=== PATIENT | male | born 1955 | race Caucasian/White ===

== ENCOUNTER 2022-05-31 06:00 | Day surgery (SDC) | payer MEDICARE ==
[~2022-05-31 06:00] MED LIST: Lactated Ringers 1,000 ML IV SCH
[2022-05-31] MEDS ORDERED: Versed 2 MG/2 ML Injection ONE (06:58)
[2022-05-31] MEDS ORDERED: DIPRIVAN 200 MG/20 ML IV ONE ×2 (06:58→07:18)
[2022-05-31 07:46] VITALS: BP 146/89; PULSE 53; O2SAT 100
--- NOTE | 2022-05-31 14:36 | OP ---
SURGERY DATE/TIME: 05/31/2022 0709 PREOPERATIVE DIAGNOSIS: Screening exam. POSTOPERATIVE DIAGNOSES: 1) Sigmoid polyp. 2) Sigmoid diverticulosis. PROCEDURE: Colonoscopy with hot snare polypectomy. SURGEON: Dr. Jhon Chaidez. ANESTHESIA: MAC. Medications given by anesthesia department. HISTORY: The patient is a 67-year-old white male patient who reports he presents for screening colonoscopy. He reports he had one previously about 15 years ago. The patient was felt the need to have endoscopic evaluation. He was appraised of the risks of the procedure including the risk of perforation, phlebitis, untoward reaction to medication, bleeding and missed lesions. The patient verbalized his understanding and desired to have the procedure performed. DESCRIPTION OF PROCEDURE: The patient was given the medications by the anesthesia department. He had continuous pulse oximetry, ECG monitoring, intermittent blood pressure monitoring during the examination. He was placed in the left lateral decubitus position. A digital rectal examination was performed and revealed normal anal sphincter tone, no masses and normal prostate. The flexible Olympus pediatric colonoscope was used to intubate the rectum. A view of the colon was developed sequentially to the cecum. Upon insertion and withdrawal was noted sigmoid diverticulosis and a polyp measuring approximately 1.2 cm in diameter which was removed using hot polypectomy snare and retrieved for pathologic evaluation. The scope was removed from the patient who tolerated the procedure well and sent back to outpatient recovery in good condition.
== END 2022-05-31 07:50 | disposition home or self-care (01) ==
LOC: SDC 06:00
PROVIDERS: ATTEND Family Medicine
DX: Z12.11 Encounter for screening for malignant neoplasm of colon (principal); D12.5 Benign neoplasm of sigmoid colon; K57.30 Diverticulosis of large intestine without perforation or abscess without bleeding
CPT/HCPCS: J2250; J2704

== ENCOUNTER 2024-03-02 15:05 | Emergency (ER) | payer MEDICARE ==
--- NOTE | 2024-03-02 15:16 | ERPHSYRPT ---
- History of Present Illness Time Seen by Provider: 03/02/24 15:15 Source: patient, family Exam Limitations: no limitations Physician History: This is a 69-year-old white male patient who had a steroid injection into his left foot a couple of weeks ago. In the last day or so he has noticed mild redness and tenderness that is been present on the dorsal aspect of his left foot and to the lateral milligan area. The patient called his physician office of the physician that injected the steroid and he was told to come to the emergency department to rule out a DVT. Patient has a history of hypertension, osteoarthritis and history of hepatitis in the distant past. No trauma to the left foot other than the injection 2 weeks ago. No history of DVT or other bleeding or clotting disorders. Timing/Duration: today Severity: mild Associated Symptoms: denies symptoms Allergies/Adverse Reactions: [id number] Reductase Inhibitor Adverse Reaction (Severe, Verified 03/02/24 15:18) muscle weakness Home Medications: Lisinopril/Hydrochlorothiazide [Lisinopril-Hctz 10-12.5 mg Tab] 1 tab PO UD 05/10/22 [History] Travel Risk - International Travel Have you traveled outside of the country in past 3 weeks: No - Emerging Infectious Disease Are you exhibiting symptoms associated with any current EIDs: No - Review of Systems Constitutional: No Symptoms Eyes: No Symptoms Ears, Nose, & Throat: No Symptoms Respiratory: No Symptoms Cardiac: No Symptoms Abdominal/Gastrointestinal: No Symptoms Genitourinary Symptoms: No Symptoms Musculoskeletal: No Symptoms Skin: Other (Mild localized redness dorsal aspect of his left foot associated tenderness at this site as well as tenderness to the outer/lateral aspect of the left milligan.) Neurological: No Symptoms Psychological: No Symptoms Endocrine: No Symptoms Hematologic/Lymphatic: No Symptoms Immunological/Allergic: No Symptoms All Other Systems: Reviewed and Negative - Past Medical History Pertinent Past Medical History: Yes Neurological History: No Pertinent History ENT History: No Pertinent History Cardiac History: Hypertension Respiratory History: No Pertinent History Endocrine Medical History: Other Musculoskeletal History: Osteoarthritis GI Medical History: No Pertinent History History: No Pertinent History Psycho-Social History: No Pertinent History Male Reproductive Disorders: No Pertinent History Other Medical History: HEPITITIS 20+ YEARS AGO. - Past Surgical History Past Surgical History: No Neuro Surgical History: No Pertinent History Cardiac: No Pertinent History Respiratory: No Pertinent History Gastrointestinal: No Pertinent History Genitourinary: No Pertinent History Musculoskeletal: No Pertinent History Male Surgical History: No Pertinent History - Social History Smoking Status: Former smoker Exposure to second hand smoke: No Drug Use: none - Nursing Vital Signs Nursing Vital Signs: Initial Vital Signs Temperature 97.1 F 03/02/24 15:12 Pulse Rate 68 03/02/24 15:12 Respiratory Rate 18 03/02/24 15:12 Blood Pressure 158/106 03/02/24 15:12 O2 Sat by Pulse Oximetry 98 03/02/24 15:12 Pain Scale Pain Intensity 3 - Physical Exam General Appearance: no apparent distress, alert, anxiety, thin Eye Exam: PERRL/EOMI, eyes nml inspection Ears, Nose, Throat Exam: normal ENT inspection, moist mucous membranes Neck Exam: normal inspection, non-tender, supple, full range of motion Respiratory Exam: airway intact, No chest tenderness, No respiratory distress Gastrointestinal/Abdomen Exam: No tenderness Rectal Exam: not done Back Exam: normal inspection, normal range of motion, No CVA tenderness, No vertebral tenderness Extremity Exam: normal range of motion, pelvis stable, swelling (Dorsal aspect left foot), tenderness (Dorsal aspect left foot with tenderness in the skin overlying the left distal milligan and left lateral milligan) Neurologic Exam: alert, oriented x 3, cooperative, emr specialist II-XII nml as tested, nml cerebellar function, nml station & gait, sensation nml Skin Exam: other (See above) Lymphatic Exam: No adenopathy SpO2 Interpretation: normal O2 Delivery: Room Air - Course Nursing assessment & vital signs reviewed: Yes Ordered Tests: Active Orders 24 hr Category Date Time Status VENOUS UNILAT/LIMITED EXTREMIT [US] Stat Exams 03/02/24 15:32 Completed - Progress Progress: unchanged Progress Note: 03/02/24 16:01 My medical decision making and the assignment of low complexity to this medical issue today is based on review of the patient's past medical history, review of the patient's medication list, reviewed patient drug allergy list, history present illness and physical findings on examination. The workup in this patient includes venous Doppler of the left lower extremity. We will also provide the patient a outpatient prescription for Keflex. 03/02/24 16:17 left venous doppler negative for dvt. study read by radiologist Counseled pt/family regarding: diagnosis, need for follow-up, rad results Medical Desision Making - Diagnostic Testing Diagnostic test were ordered, analyzed, and reviewed by me: Yes Radiological Interpretation: Reviewed by me, Teleradiologist Report - Risk of complications The pt has a mod risk of morbidity or mortality based on: Need for prescription drug management - Departure Departure Disposition: Home (cellulitist) Clinical Impression: Cellulitis Condition: Stable Critical Care Time: No Referrals: MINAL SOTO MD [Primary Care Provider] - Follow up/PCP as directed Additional Instructions: Keep site clean daily. Take medications as prescribed. call your primary care for further management and instructions. Prescriptions: Cephalexin Mh 500 mg [Keflex 500 mg] 500 mg PO TID #15 cap
[2024-03-02 15:18] VITALS: PULSE 68; RESP 18; TEMP 97.1
--- NOTE | 2024-03-02 16:13 | XRAY ---
Indication: Left leg pain and erythema. Two-dimensional sonogram and color Doppler imaging major venous vessels left leg performed. Comparison: None No thrombus seen in the examined deep venous vessels left leg including greater saphenous vein. Veins demonstrate normal compressibility. Venous waveforms are normal with and without augmentation. Targeted ultrasound over area of concern is negative for focal solid/cystic mass or abnormal fluid collection. Impression: Left leg negative for DVT.
[2024-03-02 16:43] VITALS: BP 182/107; O2SAT 97
== END 2024-03-02 16:35 | disposition home or self-care (01) ==
LOC: ED 15:05
DX: L03.116 Cellulitis of left lower limb (principal); M79.672 Pain in left foot; I10 Essential (primary) hypertension; Z79.899 Other long term (current) drug therapy
CPT/HCPCS: 93971; 99282

== ENCOUNTER 2024-08-16 07:23 | Day surgery (SDC) | payer MEDICARE ==
--- NOTE | 2024-08-15 09:55 | HP ---
HISTORY OF PRESENT ILLNESS: The patient is a 69-year-old male who presents with a positive Cologuard. Last colonoscopy was 2 years ago. He had polyps. He has no colon issues at this time. PAST MEDICAL HISTORY: Arthritis. HOME MEDICATIONS: Multivitamin, vitamin C, vitamin D, pumpkin seed oil, melatonin, turmeric, vitamin D. ALLERGIES: Statins. PAST SURGICAL HISTORY: Carpal tunnel. SOCIAL HISTORY: Former smoker. Occasional alcohol. FAMILY HISTORY: Diabetes. REVIEW OF SYSTEMS: CONSTITUTIONAL: Denies fever or chills. CHEST: Denies shortness of breath. CARDIOVASCULAR: Denies chest pain. ABDOMEN: Denies abdominal pain. PHYSICAL EXAMINATION: GENERAL: No acute distress. CARDIOVASCULAR: Regular rate and rhythm. RESPIRATORY: Nonlabored. No shortness of breath. ABDOMEN: Soft. ASSESSMENT: Positive Cologuard. PLAN: Colonoscopy with Dr. Donny Muñiz. This report was dictated for Dr. Muñiz by Erin Holley NP.
[2024-08-16 07:42] VITALS: RESP 16
[2024-08-16] MEDS: Lactated Ringers 1,000 ML IV SCH (07:47)
[2024-08-16 08:13] LABS: ANION GAP 15.3 MEQ/L (5-15); Calcium 9.4 mg/dL (8.4-10.2); Creatinine 1 0.86 mg/dL (0.66-1.25); EST GLOMERULAR FILTRATION RATE 94.3 ML/MIN
[2024-08-16] MEDS ORDERED: propofoL IV ONE ×2 (10:15→10:25)
[2024-08-16] MEDS ORDERED: ROBINUL ONE (10:22)
[2024-08-16 11:15] VITALS: BP 155/101; PULSE 56; TEMP 96.6; O2SAT 97
--- NOTE | 2024-08-17 13:58 | OP ---
SURGERY DATE/TIME: 08/16/2024 [id number] PREOPERATIVE DIAGNOSES: 1) History of polyps. 2) Positive Cologuard. POSTOPERATIVE DIAGNOSIS: Four polyps; 1 rectal, 3 sigmoid. PROCEDURE: Colonoscopy complete to cecum, hot polypectomy x4 submitted in 2 jars. SURGEON: Donny Muñiz MD ANESTHESIA: General. COMPLICATIONS: None. CONDITION: Stable. INDICATIONS: As above. DESCRIPTION OF PROCEDURE AND FINDINGS: She was taken to endoscopy. Left lateral decubitus position. Scope was introduced. Scope advanced to the cecum. Base of the cecum, ileocecal valve, appendiceal orifice were normal. Ascending hepatic transverse splenic descending. The sigmoid 3 polyps 1 cm each was taken with the hot biopsy forceps, submitted in 1 jar. Rectum 1 cm submitted in 1 jar. Anus with moderate internal hemorrhoids. Base of colon satisfactory. Followup in 3 to 5 years.
== END 2024-08-16 11:20 | disposition home or self-care (01) ==
LOC: SDC 07:23
PROVIDERS: ATTEND Surgery
DX: K62.1 Rectal polyp (principal); R19.5 Other fecal abnormalities; Z09 Encounter for follow-up examination after completed treatment for conditions other than malignant neoplasm; Z86.0100 Personal history of colon polyps, unspecified; K63.5 Polyp of colon; K64.8 Other hemorrhoids
CPT/HCPCS: 36415; 80048; 93005; J2704